=== PATIENT | female | born 1955 | race African-American/Black ===

== ENCOUNTER 2022-07-22 13:34 | Inpatient (IN) | payer MEDICARE ==
[2022-07-22 16:41] VITALS: BMI 29.7
[2022-07-22] MEDS ORDERED: Ondansetron ODT 4 MG TAB PO PRN (18:09)
[2022-07-22] MEDS ORDERED: HYDROcodone/Acetaminophen 5/325 mg Tablet PO PRN (18:10)
[2022-07-22] MEDS ORDERED: Acetaminophen 500 MG TAB PO PRN (18:10)
[2022-07-22] MEDS ORDERED: Ibuprofen 600 MG TAB PO PRN (18:11)
[2022-07-23] MEDS ORDERED: Lisinopril 20 MG TAB PO SCH (09:00)
[2022-07-23] MEDS: Ondansetron ODT 4 MG TAB PO PRN ×2 (10:43→16:45)
[2022-07-23] MEDS: Lisinopril 20 MG TAB PO SCH (10:44)
[2022-07-23] MEDS: Acetaminophen 500 MG TAB PO PRN ×2 (10:48→20:27)
[2022-07-24] MEDS: Ondansetron ODT 4 MG TAB PO PRN ×3 (00:52→21:24)
[2022-07-24] MEDS: Acetaminophen 500 MG TAB PO PRN ×3 (05:52→21:21)
[2022-07-24] MEDS: Lisinopril 20 MG TAB PO SCH (10:04)
[2022-07-24] MEDS ORDERED: Famotidine 20 MG TAB PO SCH (16:15)
[2022-07-24] MEDS: Famotidine 20 MG TAB PO SCH (21:20)
[2022-07-24] MEDS: Ibuprofen 600 MG TAB PO PRN (21:20)
[2022-07-25] MEDS: Acetaminophen 500 MG TAB PO PRN (06:22)
[2022-07-25] MEDS: Famotidine 20 MG TAB PO SCH ×2 (11:50→20:04)
[2022-07-25] MEDS: Lisinopril 20 MG TAB PO SCH (11:50)
[2022-07-25] MEDS: HYDROcodone/Acetaminophen 5/325 mg Tablet PO PRN (12:57)
[2022-07-26] MEDS: HYDROcodone/Acetaminophen 5/325 mg Tablet PO PRN ×2 (02:14→08:11)
[2022-07-26] MEDS: Ondansetron ODT 4 MG TAB PO PRN (02:14)
[2022-07-26] MEDS: Famotidine 20 MG TAB PO SCH ×2 (08:11→22:27)
[2022-07-26] MEDS: Lisinopril 20 MG TAB PO SCH (08:11)
[2022-07-26 12:23] LABS: #Basophils 0.1 thou/uL (0.0-0.2); #Eosinphils 0.4 thou/uL (0.0-0.7); #Lymphocytes 1.6 thou/uL (1.20-3.40); #Monocytes 0.9 thou/uL (0.11-0.59); #Neutrophils 8.2 thou/uL (1.40-6.50); %Basophils 0.8 % (0.0-1.0); %Eosinophils 3.7 % (0.0-10.0); %Lymphocytes 14.3 % (21.0-51.0); %Monocytes 7.7 % (0.0-10.0); %Neutrophils 73.5 % (42.0-75.0); Hemoglobin 9.8 g/dL (12.0-16.0); Mean Corpuscular Hemoglobin 29.1 pg (27.0-31.0); Mean Corpuscular Volume 88.2 fL (78.0-98.0); Mean Platelet Volume 5.5 fL (7.4-10.4); Platelet Count 533 thou/uL (130-400); RBC Distribution Width 12.7 % (11.5-14.5); Red Blood Cell (RBC) Count 3.36 mill/uL (4.20-5.40); White Blood Cell (WBC) Count 11.1 thou/uL (4.8-10.8)
[2022-07-26] MEDS ORDERED: Dextrose 5 % And 0.9 % NaCl 1,000 ML IV SCH (14:30)
[2022-07-26] MEDS ORDERED: Sodium Chloride 0.9% 1,000 ML IV SCH (14:30)
[2022-07-26] MEDS: Ondansetron PF 4 MG/2 ML Vial IVP PRN (18:34)
[2022-07-26] MEDS: Morphine 2 MG/ML VIAL SLOW IVP PRN (18:40)
[2022-07-26] MEDS: Dextrose 5 % And 0.9 % NaCl 1,000 ML IV SCH ×2 (18:47→21:12)
[2022-07-26] MEDS ORDERED: Morphine 2 MG/ML VIAL SLOW IVP SCH (20:45)
[2022-07-26] MEDS ORDERED: Promethazine HCl 25 MG in Sodium Chloride 0.9% 100 ML IVPB SCH (21:00)
[2022-07-26] MEDS ORDERED: Promethazine HCl 25 MG in Sodium Chloride 0.9% 50 ML IVPB SCH (21:00)
[2022-07-27] MEDS: Morphine 2 MG/ML VIAL SLOW IVP PRN ×3 (03:41→16:41)
[2022-07-27] MEDS: Dextrose 5 % And 0.9 % NaCl 1,000 ML IV SCH ×2 (09:25→22:54)
[2022-07-27] MEDS: Lisinopril 20 MG TAB PO SCH (15:25)
[2022-07-27] MEDS: Ondansetron PF 4 MG/2 ML Vial IVP PRN (16:48)
[2022-07-27] MEDS: Famotidine 20 MG TAB PO SCH ×2 (16:55→22:40)
[2022-07-28] MEDS: Ondansetron PF 4 MG/2 ML Vial IVP PRN (00:44)
[2022-07-28] MEDS: Morphine 2 MG/ML VIAL SLOW IVP PRN ×2 (00:45→18:06)
[2022-07-28 05:07] LABS: #Eosinphils 0.3 thou/uL (0.0-0.7); #Lymphocytes 1.1 thou/uL (1.20-3.40); #Monocytes 0.7 thou/uL (0.11-0.59); #Neutrophils 4.6 thou/uL (1.40-6.50); %Basophils 0.5 % (0.0-1.0); %Eosinophils 4.5 % (0.0-10.0); %Lymphocytes 16.6 % (21.0-51.0); %Monocytes 9.9 % (0.0-10.0); %Neutrophils 68.5 % (42.0-75.0); Hemoglobin 8.6 g/dL (12.0-16.0); Mean Corpuscular Hemoglobin 28.9 pg (27.0-31.0); Mean Corpuscular Volume 87.8 fL (78.0-98.0); Platelet Count 362 thou/uL (130-400); RBC Distribution Width 13.2 % (11.5-14.5); Red Blood Cell (RBC) Count 2.97 mill/uL (4.20-5.40); White Blood Cell (WBC) Count 6.7 thou/uL (4.8-10.8)
[2022-07-28 05:19] LABS: ALT (SGPT) 16 U/L (8-55); Albumin 3.1 g/dL (3.4-4.8); Alkaline Phosphatase 73 U/L (40-110); Anion Gap 14 mmol/L (10-20); BUN (Urea Nitrogen) 13 mg/dL (9.8-20.1); Bilirubin, Total 0.4 mg/dL (0.2-1.2); Calc. Creatinine Clearance 70 mL/min (70-130); Calcium 8.6 mg/dL (7.8-10.44); Carbon Dioxide 26 mmol/L (23-31); Chloride 104 mmol/L (98-107); Estimated GFR 57; Globulin 3.6 g/dL (2.4-3.5); Potassium 3.6 mmol/L (3.5-5.1); Protein, Total 6.7 g/dL (5.8-8.1); Sodium 140 mmol/L (136-145)
[2022-07-28 05:39] LABS: AST (SGOT) 16 U/L (5-34); Glucose 140 mg/dL (80-115)
[2022-07-28] MEDS ORDERED: Dextrose 5 % And 0.9 % NaCl 1,000 ML IV SCH (07:56)
[2022-07-28] MEDS: HYDROcodone/Acetaminophen 5/325 mg Tablet PO PRN ×2 (10:14→20:49)
[2022-07-28] MEDS: Lisinopril 20 MG TAB PO SCH (10:15)
[2022-07-28] MEDS: Famotidine 20 MG TAB PO SCH ×2 (10:15→20:47)
[2022-07-28] MEDS: Amino Acids 4.25 %/Dextrose 5% 2,000 ML IV SCH (11:34)
[2022-07-28] MEDS: Dextrose 5 % And 0.9 % NaCl 1,000 ML IV SCH (15:59)
[2022-07-29] MEDS: HYDROcodone/Acetaminophen 5/325 mg Tablet PO PRN ×3 (03:10→20:05)
[2022-07-29] MEDS: Ondansetron PF 4 MG/2 ML Vial IVP PRN (05:26)
[2022-07-29] MEDS: Morphine 2 MG/ML VIAL SLOW IVP PRN ×2 (05:30→13:35)
[2022-07-29] MEDS: Famotidine 20 MG TAB PO SCH ×2 (08:15→20:06)
[2022-07-29] MEDS: Lisinopril 20 MG TAB PO SCH (08:15)
[2022-07-29] MEDS: Amino Acids 4.25 %/Dextrose 5% 2,000 ML IV SCH (10:30)
[2022-07-29] MEDS: Ondansetron ODT 4 MG TAB PO PRN (17:15)
[2022-07-30] MEDS: Morphine 2 MG/ML VIAL SLOW IVP PRN (01:09)
[2022-07-30] MEDS: Ondansetron PF 4 MG/2 ML Vial IVP PRN (01:10)
[2022-07-30] MEDS: HYDROcodone/Acetaminophen 5/325 mg Tablet PO PRN ×2 (03:55→17:26)
[2022-07-30] MEDS: Lisinopril 20 MG TAB PO SCH (08:51)
[2022-07-30] MEDS: Famotidine 20 MG TAB PO SCH ×2 (08:51→20:35)
[2022-07-30] MEDS: Ibuprofen 600 MG TAB PO PRN ×2 (08:53→20:34)
[2022-07-30] MEDS: Amino Acids 4.25 %/Dextrose 5% 2,000 ML IV SCH (10:55)
[2022-07-31] MEDS: Ibuprofen 600 MG TAB PO PRN ×2 (03:49→11:13)
[2022-07-31] MEDS: Ondansetron ODT 4 MG TAB PO PRN (03:49)
[2022-07-31] MEDS: Famotidine 20 MG TAB PO SCH ×2 (08:36→20:31)
[2022-07-31] MEDS: Lisinopril 20 MG TAB PO SCH (08:36)
[2022-07-31] MEDS: Amino Acids 4.25 %/Dextrose 5% 2,000 ML IV SCH (11:07)
[2022-07-31] MEDS: HYDROcodone/Acetaminophen 5/325 mg Tablet PO PRN (20:31)
[2022-08-01] MEDS: Ibuprofen 600 MG TAB PO PRN ×2 (08:38→17:30)
[2022-08-01] MEDS: Lisinopril 20 MG TAB PO SCH (08:38)
[2022-08-01] MEDS: Famotidine 20 MG TAB PO SCH ×2 (08:39→20:08)
[2022-08-01] MEDS: HYDROcodone/Acetaminophen 5/325 mg Tablet PO PRN ×2 (09:14→20:08)
[2022-08-01] MEDS: Amino Acids 4.25 %/Dextrose 5% 2,000 ML IV SCH (10:27)
[2022-08-02] MEDS: Ondansetron ODT 4 MG TAB PO PRN ×3 (04:22→17:21)
[2022-08-02] MEDS: HYDROcodone/Acetaminophen 5/325 mg Tablet PO PRN ×2 (07:55→14:30)
[2022-08-02] MEDS: Lisinopril 20 MG TAB PO SCH (08:02)
[2022-08-02] MEDS: Famotidine 20 MG TAB PO SCH ×2 (08:02→20:30)
[2022-08-02] MEDS: Acetaminophen 500 MG TAB PO PRN (20:30)
[2022-08-03] MEDS: HYDROcodone/Acetaminophen 5/325 mg Tablet PO PRN ×3 (00:32→17:50)
[2022-08-03] MEDS: Famotidine 20 MG TAB PO SCH ×2 (08:09→20:51)
[2022-08-03] MEDS: Lisinopril 20 MG TAB PO SCH (08:59)
[2022-08-03] MEDS: Ondansetron ODT 4 MG TAB PO PRN (08:59)
[2022-08-04] MEDS: Ondansetron ODT 4 MG TAB PO PRN ×2 (07:11→15:40)
[2022-08-04] MEDS: HYDROcodone/Acetaminophen 5/325 mg Tablet PO PRN (07:11)
[2022-08-04] MEDS: Famotidine 20 MG TAB PO SCH ×2 (09:26→20:36)
[2022-08-04] MEDS: Lisinopril 20 MG TAB PO SCH (09:27)
[2022-08-04] MEDS: traMADol HCl 50 MG TAB PO SCH (20:36)
[2022-08-05] MEDS: Acetaminophen 500 MG TAB PO PRN ×2 (05:59→13:28)
[2022-08-05] MEDS: Lisinopril 20 MG TAB PO SCH (08:16)
[2022-08-05] MEDS: Famotidine 20 MG TAB PO SCH ×2 (08:17→21:01)
[2022-08-05] MEDS: traMADol HCl 50 MG TAB PO SCH ×2 (08:17→21:01)
[2022-08-06 06:14] VITALS: BP 159/92; TEMP 98
[2022-08-06] MEDS: traMADol HCl 50 MG TAB PO SCH (08:12)
[2022-08-06] MEDS: Famotidine 20 MG TAB PO SCH (08:13)
[2022-08-06] MEDS: Ondansetron ODT 4 MG TAB PO PRN (08:15)
== END 2022-08-06 12:20 | disposition home or self-care (01) | DRG 948 ==
LOC: BURMED 15:48
PROVIDERS: ADMIT Family Medicine; ATTEND Family Medicine
DX: R53.1 Weakness (principal); K56.7 Ileus, unspecified; T81.41XA Infection following a procedure, superficial incisional surgical site, initial encounter; Z20.822 Contact with and (suspected) exposure to COVID-19; Y83.8 Other surgical procedures as the cause of abnormal reaction of the patient, or of later complication, without mention of misadventure at the time of the procedure; I10 Essential (primary) hypertension; Z85.038 Personal history of other malignant neoplasm of large intestine; Z90.49 Acquired absence of other specified parts of digestive tract; Z91.040 Latex allergy status; Z79.899 Other long term (current) drug therapy
CPT/HCPCS: 36415; 74176; 80053; 85025; 87070; 87077; 87186; 87205; 87811; J1956; J2270; J2405; J2550; J3490; J7042; J7050; Q0162; U0003; U0005